=== PATIENT | female | born 1960 | race Caucasian/White ===

== ENCOUNTER 2016-11-25 08:38 | Emergency (ER) | payer MEDICARE, OTHER ==
[2016-11-25] MEDS ORDERED: 0.9 % SODIUM CHLORIDE 1,000 ML IV ONE (09:18)
[2016-11-25] MEDS ORDERED: ONDANSETRON HCL/PF 4 MG/ 2ML VIAL IVP ONE ×2 (09:18→11:12)
[2016-11-25 09:45] LABS: BASOPHILS % 0.2 (0.0-1.5); EOSINOPHILS % 0.5 % (0.0-6.8); LYMPHOCYTES # 1.6 # k/uL (0.6-4.0); MONOCYTES # 0.1 # k/uL (0.0-0.9); MONOCYTES % 2.9 % (0.0-11.0); NEUTROPHILS # 2.4 # k/uL (1.4-7.7)
[2016-11-25 09:58] LABS: eGFR (African) > 60; eGFR (Non-African) > 60
[2016-11-25 10:10] LABS: APPEARANCE,URINE Cloudy (CLEAR); COLOR,URINE Yellow (YELLOW); OCCULT BLOOD,URINE Negative (NEGATIVE)
[2016-11-25 11:43] VITALS: BP 102/75
--- NOTE | 2016-11-25 20:35 | ED Physician Documentation ---
Female Urogenital Problems - HISTORIAN Historian: patient - HPI Stated Complaint: patient thinks she has a current UTI Chief Complaint: Female Urogenital Problems Onset: days ago (3) Severity: moderate Location of Pain: pelvic pain Front/Back of Body, Lg (Color): 1 - pain Further Comments: no - Associated Symptoms Urinary Symptoms: blood in urine, frequent urination, discomfort w/ urination - ROS CONST: none GI/: vomiting CVS/RESP: none EYES/ENT: none NEURO/PSYCH: none MS/SKIN/LYMPH: none - PAST HX Past History: other (depression, gerd) Other History: bladder infection Surgeries/Procedures: hysterectomy, cholecystectomy Immunizations: referred to PCP Allergies/Adverse Reactions: Allergies Allergy/AdvReac Type Severity Reaction Status Date / Time erythromycin base Allergy Severe respiratory Verified 11/25/16 09:08 [Erythromycin Base] iodine Allergy Severe Shortness Verified 11/25/16 09:08 of Breath Penicillins Allergy Severe Shortness Verified 11/25/16 09:08 of Breath Sulfa (Sulfonamide Allergy Severe Shortness Verified 11/25/16 09:08 Antibiotics) of Breath Home Medications: Ambulatory Orders Medication Instructions Recorded Aspirin [Tanya] 325 mg PO D 08/04/16 Carisoprodol 350 mg PO BID 08/04/16 Cyanocobalamin [Vitamin B-12] 1,000 mg PO [id number] 08/04/16 DULoxetine HCL [Cymbalta] 30 mg PO D 08/04/16 Diazepam 2 mg PO BID 08/04/16 Hyoscyamine Sulfate [Levsin] 0.125 mg PO QID 08/04/16 Omeprazole [Prilosec] 40 mg PO D 08/04/16 Pregabalin [Lyrica] 100 mg PO TID 08/04/16 Topiramate [Topamax] 25 mg PO D 08/04/16 - SOCIAL HX Smoking History: cigarettes Alcohol Use: none Drug Use: none - FAMILY HX Family History: none - VITAL SIGNS Vital Signs: Vital Signs Temp Pulse Resp BP Pulse Ox 97.9 F 76 16 102/75 97 11/25/16 11:27 11/25/16 11:27 11/25/16 11:27 11/25/16 11:27 11/25/16 11:27 - REVIEWED ASSESSMENTS Nursing Assessment Reviewed: Yes Vitals Reviewed: Yes Progress - Results/Orders Results/Orders: ua, cbc, bmp ordered - Progress Progress: given 1 liter ns, zofran 8 mg ivp x 2 in er Critical Care Note - Critical Care Note Total Time (mins): 0 ED Results Lab/Radiology - Lab Results Lab Results: Lab Results 11/25/16 11/25/16 11/25/16 10:05 09:30 09:30 WBC 4.20 K/ul K/ul (4.00-12.00) RBC 3.78 M/ul L M/ul (3.90-5.20) Hgb 12.5 g/dL g/dL (12.0-16.0) Hct 39.9 % % (34.5-46.5) MCV 105.4 fl H fl (80.0-100.0) MCH 33.0 pg pg (28.0-34.0) MCHC 31.3 g/dL g/dL (30.0-36.0) RDW 12.7 % % (11.3-14.3) Plt Count 199 K/mm3 K/mm3 (130-400) Neut % (Auto) 56.7 % % (39.0-79.0) Lymph % (Auto) 36.9 % % (16.0-50.0) [place] % (Auto) 2.9 % % (0.0-11.0) Eos % (Auto) 0.5 % % (0.0-6.8) Baso % (Auto) 0.2 (0.0-1.5) Neut # 2.4 # k/uL # k/uL (1.4-7.7) Lymph # 1.6 # k/uL # k/uL (0.6-4.0) [place] # 0.1 # k/uL # k/uL (0.0-0.9) Eos # 0.0 # k/uL # k/uL (0.0-0.6) Baso # 0.0 # k/uL # k/uL (0.0-0.5) Reactive Lymphs % 2.9 % % (0.0-5.0) Reactive Lymphs # 0.1 # k/uL # k/uL (0.0-0.8) Sodium 150 mmol/L H mmol/L (136-145) Potassium 3.8 mmol/L mmol/L (3.5-5.0) Chloride 108 mmol/L mmol/L (98-110) Carbon Dioxide 32 mmol/L mmol/L (20-32) BUN 14 mg/dL mg/dL (10-26) Creatinine 0.7 mg/dL mg/dL (0.4-1.5) Estimated Creat Clear 76 Est GFR ( Amer) > 60 (60 - ) Est GFR (Non-Af Amer) > 60 (60 - ) Glucose 105 mg/dL H mg/dL (70-99) Calcium 9.0 mg/dL mg/dL (8.5-10.5) Urine Color Yellow (YELLOW) Urine Appearance Cloudy (CLEAR) Urine pH 7.0 (5.0 - 8.0) Ur Specific [place] 1.015 (1.010-1.030) Urine Protein Trace mg/dL mg/dL (NEGATIVE) Urine Ketones Trace mg/dL mg/dL (NEGATIVE) Urine Occult Blood Negative (NEGATIVE) Urine Nitrite Positive (NEGATIVE) Urine Bilirubin 1+ H (NEGATIVE) Urine Urobilinogen 1.0 Eu Eu (0.2-1.0) Ur Leukocyte Esterase Negative (NEGATIVE) Urine RBC 0-2 (0-2 HPF) Urine WBC 2-5 (0-5 HPF) Ur Squamous Epith Cells Few (NEG-FEW) Urine Bacteria Many H (NEGATIVE) Urine Glucose Negative mg/dL mg/dL (NEGATIVE) - Radiology Radiology Impressions: none ordered - Orders Orders: ED Orders Category Date Time Status Place Saline Lock/IV Now Care 11/25/16 09:18 Active BMP Routine Lab 11/25/16 09:30 Completed CBC/PLATELET/DIFF Routine Lab 11/25/16 09:30 Completed URINALYSIS Routine Lab 11/25/16 10:05 Completed URINE CULTURE Routine Lab 11/25/16 10:05 Received 0.9 % Sodium Chloride [Normal Saline] 1,000 ml Med 11/25/16 09:18 Discontinued IV Q2H Ondansetron HCl/Pf [Zofran 4 mg/2 ml] Med 11/25/16 09:18 Discontinued 8 mg IVP NOW ONE Ondansetron HCl/Pf [Zofran 4 mg/2 ml] Med 11/25/16 11:12 Discontinued 8 mg IVP NOW ONE Female Urogenital Problems - EXAM General Appearance: alert, mild distress EENT: eye inspection normal, ENT inspection normal, pharynx normal, no signs of dehydration, VERA, no nystagmus, TM's nml Neck: nml inspection Respiratory: no resp. distress, breath sounds nml, respiratory distress CVS: reg rate & rhythm, heart sounds normal, equal pulses, no murmur, no gallop Abdomen: soft, non-tender, no organomegaly, no distention, nml bowel sounds, tenderness (suprapubic) Back: non-tender. No: CVA tenderness Skin: color nml, no rash, warm,dry Extremities: non-tender, normal range of motion, no evidence of injury, no edema Neuro: oriented X3, CN's nml as tested, motor nml, sensation nml, mood/affect nml, cognition normal Discharge Clincal Impression: Urinary tract infection Qualifiers: Urinary tract infection type: acute cystitis Hematuria presence: with hematuria Qualified Code(s): N30.01 - Acute cystitis with hematuria Referrals: Terry Faulkner MD [Primary Care Provider] - 2 Days Home Medications: Ambulatory Orders Aspirin [Tanya] 325 mg PO D 08/04/16 Carisoprodol 350 mg PO BID 08/04/16 Cyanocobalamin [Vitamin B-12] 1,000 mg PO [id number] 08/04/16 DULoxetine HCL [Cymbalta] 30 mg PO D 08/04/16 Diazepam 2 mg PO BID 08/04/16 Hyoscyamine Sulfate [Levsin] 0.125 mg PO QID 08/04/16 Omeprazole [Prilosec] 40 mg PO D 08/04/16 Pregabalin [Lyrica] 100 mg PO TID 08/04/16 Topiramate [Topamax] 25 mg PO D 08/04/16 Comments: discharged in stable condition with script for suprax 400 mg #10 1 p.o. daily, pyridium 200 mg 1 p.o. tid #15 Condition: Stable Disposition: 01 HOME, SELF-CARE Decision to Admit: NO Decision Time: 11:20
== END 2016-11-25 11:27 | disposition home or self-care (01) ==
LOC: ED 08:38
DX: N39.0 Urinary tract infection, site not specified (principal)
CPT/HCPCS: 80048; 81002; 85025; 87088; J2405; J7030; 87186; 96361; 96374; 96376; 99283; S1016

== ENCOUNTER 2016-12-09 10:45 | Outpatient (CLI) | payer MEDICARE, OTHER | END 2016-12-09 10:46 | LOC: LABRHC 10:45 | PROVIDERS: ATTEND Family Medicine | DX: N30.00 Acute cystitis without hematuria (principal) | CPT/HCPCS: 87088; 87186 ==

== ENCOUNTER 2017-03-01 12:07 | Emergency (ER) | payer MEDICARE, OTHER ==
[2017-03-01] MEDS ORDERED: 0.9 % SODIUM CHLORIDE 1,000 ML IV ONE (12:19)
[2017-03-01 12:48] LABS: BASOPHILS % 0.3 (0.0-1.5); EOSINOPHILS % 1.2 % (0.0-6.8); MEAN CORPUSCULAR HEMOGLOBIN 32.2 pg (28.0-34.0); MONOCYTES % 3.8 % (0.0-11.0); NEUTROPHILS # 5.5 # k/uL (1.4-7.7)
[2017-03-01 13:09] LABS: eGFR (African) > 60; eGFR (Non-African) > 60
--- NOTE | 2017-03-01 13:20 | ED Physician Documentation ---
General Adult - HISTORIAN Historian: patient - HPI Stated Complaint: dehydration Chief Complaint: General Adult Further Comments: yes (56 year old female patient presents with abdominal pain and diarrhea. Patient states she is dehyrated. States she has to have IV fluids frequently due to her dumping syndrome.) - ROS CONST: no problems EYES/ENT: none CVS/RESP: none GI/: none MS/SKIN/LYMPH: none NEURO/PSYCH: denies: headache - PAST HX Past History: hypertension Other History: other (Fibromyalgia, peptic ulcer, GI bleed, dumping syndrome, cerebral aneursym, malabsorption issues) Surgeries/Procedures: other (partial gastrectomy) Allergies/Adverse Reactions: Allergies Allergy/AdvReac Type Severity Reaction Status Date / Time erythromycin base Allergy Severe respiratory Verified 03/01/17 12:31 [Erythromycin Base] iodine Allergy Severe Shortness Verified 03/01/17 12:31 of Breath Penicillins Allergy Severe Shortness Verified 03/01/17 12:31 of Breath Sulfa (Sulfonamide Allergy Severe Shortness Verified 03/01/17 12:31 Antibiotics) of Breath Home Medications: Ambulatory Orders Medication Instructions Recorded Aspirin [Tanya] 325 mg PO D 08/04/16 Carisoprodol 350 mg PO BID 08/04/16 Cyanocobalamin [Vitamin B-12] 1,000 mg PO [id number] 08/04/16 DULoxetine HCL [Cymbalta] 30 mg PO D 08/04/16 Diazepam 2 mg PO BID 08/04/16 Hyoscyamine Sulfate [Levsin] 0.125 mg PO QID 08/04/16 Omeprazole [Prilosec] 40 mg PO D 08/04/16 Pregabalin [Lyrica] 100 mg PO TID 08/04/16 Topiramate [Topamax] 25 mg PO D 08/04/16 - SOCIAL HX Smoking History: cigarettes - FAMILY HX Family History: No - VITAL SIGNS Vital Signs: Vital Signs Temp Pulse Resp BP Pulse Ox 99 F 88 18 135/90 96 03/01/17 12:21 03/01/17 12:21 03/01/17 12:21 03/01/17 12:21 03/01/17 12:21 - REVIEWED ASSESSMENTS Nursing Assessment Reviewed: Yes Vitals Reviewed: Yes Progress - Progress Progress: 1315 Reviewed lab work with patient, now states she has urinary frequency and dysuria. C/O severe diarrhea, no diarrhea while in Er. Patient states she has to have IV antibiotics with UTI due to stomach surgeries, request UA. Will I/O cath for UA. no UTI on UA, will discharge home. ED Results Lab/Radiology - Lab Results Lab Results: Lab Results 03/01/17 03/01/17 12:45 12:45 WBC 8.20 K/ul K/ul (4.00-12.00) RBC 4.16 M/ul M/ul (3.90-5.20) Hgb 13.4 g/dL g/dL (12.0-16.0) Hct 42.5 % % (34.5-46.5) MCV 102.0 fl H fl (80.0-100.0) MCH 32.2 pg pg (28.0-34.0) MCHC 31.6 g/dL g/dL (30.0-36.0) RDW 13.6 % % (11.3-14.3) Plt Count 297 K/mm3 K/mm3 (130-400) Neut % (Auto) 66.6 % % (39.0-79.0) Lymph % (Auto) 26.0 % % (16.0-50.0) [place] % (Auto) 3.8 % % (0.0-11.0) Eos % (Auto) 1.2 % % (0.0-6.8) Baso % (Auto) 0.3 (0.0-1.5) Neut # 5.5 # k/uL # k/uL (1.4-7.7) Lymph # 2.1 # k/uL # k/uL (0.6-4.0) [place] # 0.3 # k/uL # k/uL (0.0-0.9) Eos # 0.1 # k/uL # k/uL (0.0-0.6) Baso # 0.0 # k/uL # k/uL (0.0-0.5) Reactive Lymphs % 2.1 % % (0.0-5.0) Reactive Lymphs # 0.2 # k/uL # k/uL (0.0-0.8) Sodium 137 mmol/L mmol/L (136-145) Potassium 3.8 mmol/L mmol/L (3.5-5.0) Chloride 105 mmol/L mmol/L (98-110) Carbon Dioxide 28 mmol/L mmol/L (20-32) BUN 8 mg/dL L mg/dL (10-26) Creatinine 0.8 mg/dL mg/dL (0.4-1.5) Estimated Creat Clear 66 Est GFR ( Amer) > 60 (60 - ) Est GFR (Non-Af Amer) > 60 (60 - ) Glucose 103 mg/dL H mg/dL (70-99) Calcium 9.8 mg/dL mg/dL (8.5-10.5) Total Bilirubin 0.4 mg/dL mg/dL (0.2-1.2) AST 17 U/L U/L (0-41) ALT 24 U/L U/L (0-45) Alkaline Phosphatase 82 U/L U/L (46-116) Total Protein 7.7 g/dL g/dL (6.0-8.5) Albumin 5.0 g/dL g/dL (3.0-5.5) - Orders Orders: ED Orders Category Date Time Status Place Saline Lock/IV NOW Care 03/01/17 12:19 Active CBC/PLATELET/DIFF Stat Lab 03/01/17 12:45 Completed CMP Stat Lab 03/01/17 12:45 Completed UA W/MICRO IF INDICATED Stat Lab 03/01/17 12:19 Ordered 0.9 % Sodium Chloride [Normal Saline] 1,000 ml Med 03/01/17 12:19 Discontinued IV NOW General Adult Physical Exam - PHYSICAL EXAM GENERAL APPEARANCE: [id number] N EENT: eye inspection normal, VERA RESPIRATORY: no resp distress, chest non-tender, breath sounds normal CVS: reg rate & rhythm, heart sounds normal, equal pulses, no murmur, no gallop , PMI nml, no JVD, no friction rub, 24 ABDOMEN: soft, no organomegaly, normal bowel sounds, no abdominal bruit, no distension SKIN: normal color, warm/dry, NR, INT, PAL, DR EXTREMITIES: non-tender, normal range of motion, no evidence of injury, no edema , J, 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 Home Medications: Ambulatory Orders Aspirin [Tanya] 325 mg PO D 08/04/16 Carisoprodol 350 mg PO BID 08/04/16 Cyanocobalamin [Vitamin B-12] 1,000 mg PO [id number] 08/04/16 DULoxetine HCL [Cymbalta] 30 mg PO D 08/04/16 Diazepam 2 mg PO BID 08/04/16 Hyoscyamine Sulfate [Levsin] 0.125 mg PO QID 08/04/16 Omeprazole [Prilosec] 40 mg PO D 08/04/16 Pregabalin [Lyrica] 100 mg PO TID 08/04/16 Topiramate [Topamax] 25 mg PO D 08/04/16 Condition: Stable Disposition: 01 HOME, SELF-CARE Decision to Admit: NO Decision Time: 14:15
[2017-03-01 13:37] LABS: APPEARANCE,URINE Clear (CLEAR); COLOR,URINE Yellow (YELLOW); OCCULT BLOOD,URINE Trace-intact (NEGATIVE); PH URINE 6.5 (5.0 - 8.0); UROBILINOGEN URINE 0.2 Eu (0.2-1.0)
[2017-03-01 14:26] VITALS: BP 130/82
== END 2017-03-01 14:16 | disposition home or self-care (01) ==
LOC: ED 12:07
DX: K59.1 Functional diarrhea (principal)
CPT/HCPCS: 80053; 81002; 85025; J7030; 51701; 96360; 99283; S1016

== ENCOUNTER 2017-07-31 08:38 | Outpatient (CLI) | payer MEDICARE, OTHER ==
[2017-07-31 08:50] LABS: BASOPHILS % 0.6 (0.0-1.5); EOSINOPHILS % 3.3 % (0.0-6.8); MEAN CORPUSCULAR HEMOGLOBIN 32.7 pg (28.0-34.0); MONOCYTES % 5.6 % (0.0-11.0); NEUTROPHILS # 4.2 # k/uL (1.4-7.7)
[2017-07-31 09:11] LABS: eGFR (African) > 60; eGFR (Non-African) > 60
== END 2017-07-31 08:40 ==
LOC: LAB 08:38
PROVIDERS: ATTEND Internal Medicine Gastroenterology
DX: Z48.815 Encounter for surgical aftercare following surgery on the digestive system (principal); R63.4 Abnormal weight loss; Z87.11 Personal history of peptic ulcer disease; R10.11 Right upper quadrant pain; K86.1 Other chronic pancreatitis
CPT/HCPCS: 36415; 80053; 85025

== ENCOUNTER 2017-08-08 08:40 | Emergency (ER) | payer MEDICARE, OTHER ==
--- NOTE | 2017-08-08 08:47 | ED Physician Documentation ---
Allergy Symptoms - HISTORIAN Historian: patient - HPI Stated Complaint: rash after starting new meds although she was outside over weekend as well Chief Complaint: Allergic Reaction Onset: other (Monday is when rash started ) Duration: continues in ED Associated Symptoms: skin rash, facial, trunk Swelling: face Shortness of Breath: none Trouble Swallowing/ Speaking: none Identified Cause: possibly (new meds and outdoor exposure) Context: Food Exposure: other (two new meds from GI ) Where: home Context: Medication Exposure: other (Linzese and Creon ) Context: Other Exposure: other (meds and she was working in the yard over weekend ) Further Comments: no - ROS EYES/ENT: none CVS/RESP: none GI/: none CONST: denies: fever, sweating, chills MS/SKIN/LYMPH: none NEURO/PSYCH: none - PAST HX Prior Allergic Reaction: other (she is allergic to several antibiotics ) Medical History: other (CHF, Reflux, depression, Pancreatitis, smoking, IBS, Dumping syndrome) Immunizations: referred to PCP - SOCIAL HX Smoking History: cigarettes Alcohol Use: none Drug Use: none - FAMILY HX Family History: No - VITAL SIGNS Vital Signs: Vital Signs Temp Pulse Resp BP Pulse Ox 130/82 03/01/17 14:24 - REVIEWED ASSESSMENTS Nursing Assessment Reviewed: Yes Vitals Reviewed: Yes <Maria Guadalupe Liu - Last Filed: 08/08/17 09:57> - HPI Identified Cause: possibly - VITAL SIGNS Vital Signs: Vital Signs Temp Pulse Resp BP Pulse Ox 98.5 F 86 20 103/68 97 08/08/17 08:40 08/08/17 09:58 08/08/17 09:58 08/08/17 09:58 08/08/17 09:58 <Terry Faulkner - Last Filed: 08/08/17 10:01> - PAST HX Allergies/Adverse Reactions: Allergies Allergy/AdvReac Type Severity Reaction Status Date / Time erythromycin base Allergy Severe respiratory Verified 08/08/17 08:55 [Erythromycin Base] iodine Allergy Severe Shortness Verified 08/08/17 08:55 of Breath Penicillins Allergy Severe Shortness Verified 08/08/17 08:55 of Breath Sulfa (Sulfonamide Allergy Severe Shortness Verified 08/08/17 08:55 Antibiotics) of Breath Home Medications: Ambulatory Orders Medication Instructions Recorded Aspirin [Tanya] 325 mg PO D 08/04/16 Carisoprodol 350 mg PO BID 08/04/16 Cyanocobalamin [Vitamin B-12] 1,000 mg PO [id number] 08/04/16 DULoxetine HCL [Cymbalta] 30 mg PO D 08/04/16 Diazepam 2 mg PO BID 08/04/16 Hyoscyamine Sulfate [Levsin] 0.125 mg PO QID 08/04/16 Omeprazole [Prilosec] 40 mg PO D 08/04/16 Pregabalin [Lyrica] 100 mg PO TID 08/04/16 Topiramate [Topamax] 25 mg PO D 08/04/16 Progress - Progress Progress: I have seen patient and agree with assessment and treatment plan. Dane Faulkner MD <Terry Faulkner - Last Filed: 08/08/17 10:01> ED Results Lab/Radiology - Orders Orders: ED Orders Category Date Time Status Famotidine [Pepcid] Med 08/08/17 09:01 Discontinued 20 mg .ROUTE .STK-MED ONE Famotidine [Pepcid] Med 08/08/17 09:01 Discontinued 20 mg PO NOW ONE diphenhydrAMINE HCL [Benadryl] Med 08/08/17 09:01 Discontinued 50 mg PO .STK-MED ONE diphenhydrAMINE HCL [Benadryl] Med 08/08/17 09:00 Discontinued 50 mg PO NOW ONE methylPREDNISolone ACETATE [Depo-Medrol] Med 08/08/17 09:02 Discontinued 80 mg IM .STK-MED ONE methylPREDNISolone ACETATE [Depo-Medrol] Med 08/08/17 09:01 Discontinued 80 mg IM NOW ONE <Terry Faulkner - Last Filed: 08/08/17 10:01> Allergy Symptons Exam - EXAM General Appearance: no acute distress HEENT: ENT nml inspection Skin: skin rash, erythema, facial, trunk, arms, legs Extremities: non-tender Neck: nml inspection Respiratory: no resp. distress, wheezes CVS: reg rate & rhythm, heart sounds normal, equal pulses Abdomen: non-tender, no organomegaly, nml bowel sounds Neuro: oriented X3, CN's nml as tested <Maria Guadalupe Liu - Last Filed: 08/08/17 09:57> Discharge Decision to Admit: NO Date of Decison to Admit: 08/08/17 Decision Time: 09:46 <Maria Guadalupe Liu - Last Filed: 08/08/17 09:57> <Terry Faulkner - Last Filed: 08/08/17 10:01> Clincal Impression: Allergic Qualifiers: Encounter type: initial encounter Qualified Code(s): T78.40XA - Allergy, unspecified, initial encounter Referrals: Michelle Del Castillo PRN [Primary Care Provider] - 2 Days Additional Instructions: Follow up with PCP and GI Take Arsen Medrano for now until discuss with GI Condition: Stable Disposition: 01 HOME, SELF-CARE
[2017-08-08] MEDS ORDERED: FAMOTIDINE 20 MG TABLET ONE (09:01)
[2017-08-08] MEDS ORDERED: diphenhydrAMINE HCL 25 MG TABLET PO ONE (09:01)
[2017-08-08] MEDS ORDERED: methylPREDNISolone ACETATE 80 MG/ML VIAL IM ONE (09:02)
[2017-08-08] MEDS: diphenhydrAMINE HCL 25 MG TABLET PO ONE (09:05)
[2017-08-08] MEDS: methylPREDNISolone ACETATE 80 MG/ML VIAL IM ONE (09:05)
[2017-08-08] MEDS: FAMOTIDINE 20 MG TABLET PO ONE (09:05)
[2017-08-08 10:00] VITALS: BP 103/68
== END 2017-08-08 10:00 | disposition home or self-care (01) ==
LOC: ED 08:40
DX: T78.40XA Allergy, unspecified, initial encounter (principal); X58.XXXA Exposure to other specified factors, initial encounter; Y93.9 Activity, unspecified; Y99.9 Unspecified external cause status
CPT/HCPCS: J1040; Q0163; 96372; 99283

== ENCOUNTER 2018-01-08 13:28 | Emergency (ER) | payer MEDICARE, OTHER ==
[2018-01-08 14:00] LABS: BASOPHILS % 0.4 (0.0-1.5); EOSINOPHILS % 1.1 % (0.0-6.8); MEAN CORPUSCULAR HEMOGLOBIN 30.4 pg (28.0-34.0); MEAN CORPUSCULAR VOLUME 96.5 fl (80.0-100.0); NEUTROPHILS # 2.6 # k/uL (1.4-7.7)
[2018-01-08 14:01] LABS: APPEARANCE,URINE Slightly Cloudy (CLEAR); COLOR,URINE Yellow (YELLOW); OCCULT BLOOD,URINE Trace-intact (NEGATIVE); UROBILINOGEN URINE 0.2 Eu (0.2-1.0)
[2018-01-08] MEDS: 0.9 % SODIUM CHLORIDE 1,000 ML IV ONE (14:01)
[2018-01-08 14:14] LABS: eGFR (African) > 60; eGFR (Non-African) > 60
--- NOTE | 2018-01-08 14:29 | ED Physician Documentation ---
General Adult - HISTORIAN Historian: patient - HPI Stated Complaint: dehydration/painful urination Chief Complaint: General Adult Further Comments: yes (57 year old female patient presents with complaint of painful urination, nausea with eating, dumping syndrome. Denies fever, chills or vomiting. Reviewed old records.) - ROS CONST: weakness. denies: no problems, fever, recent illness EYES/ENT: none CVS/RESP: none GI/: none MS/SKIN/LYMPH: none NEURO/PSYCH: denies: headache, fainting, dizziness, tingling, numbness, difficulty walking, difficulty with speech, anxiety, depression, other - PAST HX Past History: other (fibromyalgia, dumping syndrome, cerebral aneursym, GI bleed , malabsorption syndrome) Surgeries/Procedures: other (partial gastrectomy) Allergies/Adverse Reactions: Allergies Allergy/AdvReac Type Severity Reaction Status Date / Time erythromycin base Allergy Severe respiratory Verified 01/08/18 13:46 [Erythromycin Base] iodine Allergy Severe Shortness Verified 01/08/18 13:46 of Breath Penicillins Allergy Severe Shortness Verified 01/08/18 13:46 of Breath Sulfa (Sulfonamide Allergy Severe Shortness Verified 01/08/18 13:46 Antibiotics) of Breath Home Medications: Ambulatory Orders Medication Instructions Recorded Aspirin [Tanya] 325 mg PO D 08/04/16 Carisoprodol 350 mg PO BID 08/04/16 Cyanocobalamin [Vitamin B-12] 1,000 mg PO [id number] 08/04/16 DULoxetine HCL [Cymbalta] 30 mg PO D 08/04/16 Diazepam 2 mg PO BID 08/04/16 Hyoscyamine Sulfate [Levsin] 0.125 mg PO QID 08/04/16 Omeprazole [Prilosec] 40 mg PO D 08/04/16 Pregabalin [Lyrica] 100 mg PO TID 08/04/16 Topiramate [Topamax] 25 mg PO D 08/04/16 - SOCIAL HX Smoking History: cigarettes - FAMILY HX Family History: No - VITAL SIGNS Vital Signs: Vital Signs Temp Pulse Resp BP Pulse Ox 97.6 F 77 14 114/77 96 01/08/18 13:30 01/08/18 13:30 01/08/18 13:30 01/08/18 13:30 01/08/18 13:30 - REVIEWED ASSESSMENTS Nursing Assessment Reviewed: Yes Vitals Reviewed: Yes ED Results Lab/Radiology - Lab Results Lab Results: Lab Results 01/08/18 01/08/18 01/08/18 13:55 13:55 13:55 WBC 4.80 K/ul K/ul (4.00-12.00) RBC 4.43 M/ul M/ul (3.90-5.20) Hgb 13.5 g/dL g/dL (12.0-16.0) Hct 42.8 % % (34.5-46.5) MCV 96.5 fl fl (80.0-100.0) MCH 30.4 pg pg (28.0-34.0) MCHC 31.5 g/dL g/dL (30.0-36.0) RDW 15.1 % H % (11.3-14.3) Plt Count 254 K/mm3 K/mm3 (130-400) Neut % (Auto) 55.3 % % (39.0-79.0) Lymph % (Auto) 36.0 % % (16.0-50.0) [place] % (Auto) 4.0 % % (0.0-11.0) Eos % (Auto) 1.1 % % (0.0-6.8) Baso % (Auto) 0.4 (0.0-1.5) Neut # (Auto) 2.6 # k/uL # k/uL (1.4-7.7) Lymph # (Auto) 1.7 # k/uL # k/uL (0.6-4.0) [place] # (Auto) 0.2 # k/uL # k/uL (0.0-0.9) Eos # (Auto) 0.0 # k/uL # k/uL (0.0-0.6) Baso # (Auto) 0.0 # k/uL # k/uL (0.0-0.5) Reactive Lymphs % 3.1 % % (0.0-5.0) Reactive Lymphs # 0.2 # k/uL # k/uL (0.0-0.8) Sodium 143 mmol/L mmol/L (136-145) Potassium 3.8 mmol/L mmol/L (3.5-5.1) Chloride 105 mmol/L mmol/L (98-107) Carbon Dioxide 28 mmol/L mmol/L (22-30) BUN 8 mg/dL mg/dL (7-17) Creatinine 0.90 mg/dL mg/dL (0.52-1.04) Estimated Creat Clear 57 Est GFR ( Amer) > 60 (60 - ) Est GFR (Non-Af Amer) > 60 (60 - ) Glucose 100 mg/dL mg/dL (74-106) Calcium 9.1 mg/dL mg/dL (8.4-10.2) Urine Color Yellow (YELLOW) Urine Appearance Slightly cloudy (CLEAR) Urine pH 6.0 (5.0 - 8.0) Ur Specific [place] 1.020 (1.010-1.030) Urine Protein Negative mg/dL mg/dL (NEGATIVE) Urine Ketones Negative mg/dL mg/dL (NEGATIVE) Urine Occult Blood Trace-intact (NEGATIVE) Urine Nitrite Negative (NEGATIVE) Urine Bilirubin Negative (NEGATIVE) Urine Urobilinogen 0.2 Eu Eu (0.2-1.0) Ur Leukocyte Esterase Negative (NEGATIVE) Urine Glucose Negative mg/dL mg/dL (NEGATIVE) - Orders Orders: ED Orders Category Date Time Status Place IV Lock 1T Care 01/08/18 13:40 Active BMP [BMP] Stat Lab 01/08/18 13:55 Completed CBC/PLATELET/DIFF Stat Lab 01/08/18 13:55 Completed UA W/MICRO IF INDICATED Stat Lab 01/08/18 13:55 Completed 0.9 % Sodium Chloride [Normal Saline] 1,000 ml Med 01/08/18 13:40 Discontinued IV NOW General Adult Physical Exam - PHYSICAL EXAM GENERAL APPEARANCE: mild distress EENT: eye inspection normal, ENT inspection normal, pharynx normal, no signs of dehydration, VERA, no nystagmus, TM's nml RESPIRATORY: no resp distress, chest non-tender, breath sounds normal CVS: reg rate & rhythm, heart sounds normal, equal pulses, no murmur, no gallop , PMI nml, no JVD, no friction rub, 24 ABDOMEN: soft, no organomegaly, normal bowel sounds, no abdominal bruit, no distension SKIN: normal color, warm/dry, NR, INT, PAL, DR EXTREMITIES: non-tender, normal range of motion, no evidence of injury, no edema , J, [employer]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 X3, CN's nml as tested, motor nml, sensation nml, mood/affect nml Discharge Clincal Impression: Dysuria, Nausea alone Referrals: Michelle Del Castillo PRN [Primary Care Provider] - 2 Days Additional Instructions: Diet: Clear liquids Sprite/7-up Juices apple, white grape Gatorade/Powerade Jello Popsicles When tolerating clear liquids, advance to bland/brat diet - such as crackers, rice, Bananas, apples/applesauce or toast Return to the emergency department or call your doctor, if you are having severe abdominal pain, fever >101.0, or if there is blood in the vomit or diarrhea, or you cannot keep down liquids or solid food. Condition: Stable Disposition: 01 HOME, SELF-CARE Decision to Admit: NO Decision Time: 14:28
[2018-01-08 14:48] VITALS: BP 112/76
== END 2018-01-08 14:44 | disposition home or self-care (01) ==
LOC: ED 13:28
DX: R11.0 Nausea (principal); R30.0 Dysuria; Z90.3 Acquired absence of stomach [part of]; K91.1 Postgastric surgery syndromes; K90.9 Intestinal malabsorption, unspecified
CPT/HCPCS: 80048; 81002; 85025; 96365; 99283; J7030; S1016

== ENCOUNTER 2018-10-12 07:33 | Outpatient (CLI) | payer MEDICARE, OTHER ==
[2018-10-12 07:48] LABS: BASOPHILS % 0.3 (0.0-1.5); MEAN CORPUSCULAR HEMOGLOBIN 26.2 pg (28.0-34.0); MONOCYTES % 5.1 % (0.0-11.0); NEUTROPHILS # 2.9 # k/uL (1.4-7.7)
== END 2018-10-12 07:35 ==
LOC: LAB 07:33
PROVIDERS: ATTEND Nurse Practitioner Family
DX: R71.8 Other abnormality of red blood cells (principal)
CPT/HCPCS: 36415; 85025

== ENCOUNTER 2018-10-18 09:04 | Outpatient (CLI) | payer MEDICARE, OTHER ==
[2018-10-18 09:26] LABS: MEAN CORPUSCULAR HEMOGLOBIN 25.4 pg (28.0-34.0)
[2018-10-18 09:27] LABS: BASOPHILS % 0.3 (0.0-1.5); EOSINOPHILS % 0.5 % (0.0-6.8); MONOCYTES % 7.7 % (0.0-11.0); NEUTROPHILS # 2.6 # k/uL (1.4-7.7)
[2018-10-18 23:41] LABS: IRON SERUM 22 ug/dL (37-145); SERUM IRON 22 ug/dL (37-145)
== END 2018-10-18 09:05 ==
LOC: LAB 09:04
PROVIDERS: ATTEND Nurse Practitioner Family
DX: R71.0 Precipitous drop in hematocrit (principal)
CPT/HCPCS: 36415; 83540; 83550; 85025

== ENCOUNTER 2018-12-03 12:11 | Outpatient (CLI) | payer MEDICARE, OTHER ==
[2018-12-03 12:39] LABS: MEAN CORPUSCULAR HEMOGLOBIN 29.5 pg (28.0-34.0)
[2018-12-03 12:40] LABS: BASOPHILS % 0.4 (0.0-1.5); EOSINOPHILS % 1.1 % (0.0-6.8); MONOCYTES % 7.5 % (0.0-11.0); NEUTROPHILS # 2.4 # k/uL (1.4-7.7)
== END 2018-12-03 12:13 ==
LOC: LAB 12:11
PROVIDERS: ATTEND Internal Medicine Gastroenterology
DX: D50.9 Iron deficiency anemia, unspecified (principal)
CPT/HCPCS: 36415; 83540; 85025

== ENCOUNTER 2018-12-24 09:57 | Outpatient (CLI) | payer MEDICARE, OTHER | END 2018-12-24 10:00 | LOC: LAB 09:57 | PROVIDERS: ATTEND Internal Medicine Gastroenterology | DX: D50.9 Iron deficiency anemia, unspecified (principal) | CPT/HCPCS: 36415; 83540; 83550 ==

== ENCOUNTER 2019-01-09 15:28 | Outpatient (CLI) | payer MEDICARE, OTHER ==
[2019-01-09 17:50] LABS: APPEARANCE,URINE CLEAR (CLEAR); COLOR,URINE YELLOW (YELLOW); OCCULT BLOOD,URINE TRACE-INTACT (NEGATIVE); UROBILINOGEN URINE 0.2 Eu (0.2-1.0)
== END 2019-01-09 15:30 ==
LOC: LAB 15:28
PROVIDERS: ATTEND Nurse Practitioner Family
DX: R30.0 Dysuria (principal); Z77.011 Contact with and (suspected) exposure to lead
CPT/HCPCS: 36415; 81002; 83655; 87086

== ENCOUNTER 2019-09-18 11:15 | Outpatient (CLI) | payer MEDICARE, OTHER ==
[2019-09-18 12:31] LABS: BASOPHILS % 0.2 % (0.0-1.5); NEUTROPHILS # 2.7 # k/uL (1.4-7.7)
[2019-09-18 13:06] LABS: eGFR (Non-African) > 60
== END 2019-09-18 11:20 ==
LOC: LAB 11:15
PROVIDERS: ATTEND Internal Medicine Gastroenterology
DX: K86.1 Other chronic pancreatitis (principal); D50.9 Iron deficiency anemia, unspecified; K58.9 Irritable bowel syndrome, unspecified
CPT/HCPCS: 36415; 80053; 85025